=== PATIENT | male | born 1990 | race Caucasian/White ===

== ENCOUNTER 2024-05-15 10:09 | Emergency (ER) | payer BC | END 2024-05-15 11:30 | disposition home or self-care (01) | LOC: CC.ED 10:09 | DX: S83.91XA Sprain of unspecified site of right knee, initial encounter (principal); Z88.1 Allergy status to other antibiotic agents; X50.1XXA Overexertion from prolonged static or awkward postures, initial encounter | CPT/HCPCS: 73560-RT; 99283 ==